=== PATIENT | female | born 1975 | race Caucasian/White ===

== ENCOUNTER 2016-06-02 17:51 | Emergency (ER) | payer BC ==
[2016-06-02 18:50] VITALS: BP 122/52
--- NOTE | 2016-06-02 19:17 | UC ---
Respiratory Complaint HPI - HPI Summary HPI Summary: ill in Feb with URI and ear infection, took erythromycin. Ill again in Mar with "sinusitis", Rx another antibiotic. Now for past week sinus congestion, right ear pressure/pain, PND, dry cough. 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 No recent fever. No discolored drainage. No new environmental exposures. Was using Claritin-D which seemed to help, b ut when she stopped she had rebound congestion. Irritated and angry that she is still ill after so long. Able to eat and drink - History of Current Complaint Chief Complaint: UCGeneralIllness Stated Complaint: EARS & SINUSES Time Seen by Provider: 06/02/16 18:57 Hx Obtained From: Patient Onset/Duration: Lasting Weeks - 1, for recent episode of congestion Timing: Constant Severity Initially: Mild Severity Currently: Moderate Character: Cough: Nonproductive Aggravating Factors: Nothing Alleviating Factors: Nothing Associated Signs And Symptoms: Positive: Chills, URI, Nasal Congestion, Hoarseness, Sinus Discomfort. Negative: Fever, Pleuritic Chest Pain, Wheezing, Hemoptysis, Dizziness - Risk Factors Pulmonary Embolism Risk Factors: Negative Cardiac Risk Factors: Negative Pseudomonas Risk Factors: Negative Tuberculosis Risk Factors: Negative - Allergies/Home Medications Allergies/Adverse Reactions: Allergies Allergy/AdvReac Type Severity Reaction Status Date / Time Sulfa Antibiotics Allergy Mild Rash Verified 06/02/16 18:50 PMH/Surg Hx/FS Hx/Imm Hx Previously Healthy: Yes Endocrine History Of: Denies: Diabetes, Thyroid Disease Cardiovascular History Of: Denies: Cardiac Disorders, Hypertension Respiratory History Of: Denies: Asthma - Surgical History Surgical History: Yes Surgery Procedure, Year, and Place: hysterectomy. 2 c -sections. knee - Family History Known Family History: Positive: Other - psotive FMH of URI - Social History Occupation: Employed Full-time Lives: With Family Alcohol Use: Rare Substance Use Type: None Smoking Status (MU): Never Smoked Tobacco - Immunization History Most Recent Influenza Vaccination: no Review of Systems Constitutional: Chills, Fatigue Skin: Negative Eyes: Negative ENT: Ear Ache, Nasal Discharge Respiratory: Cough Cardiovascular: Negative Gastrointestinal: Negative Genitourinary: Negative Motor: Negative Neurovascular: Negative Musculoskeletal: Negative Neurological: Headache - off and on Psychological: Negative All Other Systems Reviewed And Are Negative: Yes Physical Exam Triage Information Reviewed: Yes Appearance: Well-Appearing, No Pain Distress, Well-Nourished Vital Signs: Initial Vital Signs Temp 98.3 F 06/02/16 18:44 Pulse 92 06/02/16 18:44 Resp 18 06/02/16 18:44 BP 122/52 06/02/16 18:44 Pulse Ox 100 06/02/16 18:44 Vital Signs Reviewed: Yes Eye Exam: Normal Eyes: Positive: Conjunctiva Clear ENT: Positive: Hearing grossly normal, Pharynx normal, Nasal congestion, Nasal drainage, TM dull - right side; slightly dusky pink as compared to left, Muffled /hoarse voice - hoarse. Negative: Tonsillar swelling, Tonsillar exudate, Trismus Neck exam: Normal Neck: Positive: Supple Respiratory Exam: Normal Cardiovascular Exam: Normal Musculoskeletal Exam: Normal Neurological Exam: Normal Psychological Exam: Normal Skin Exam: Normal UC Diagnostic Evaluation - Laboratory O2 Sat by Pulse Oximetry: 100 Respiratory Course/Dx - Differential Dx/Diagnosis Differential Diagnosis/HQI/PQRI: Bronchitis, Lower Resp Infection, Sinusitis Provider Diagnoses: URI Discharge - Discharge Plan Condition: Stable Disposition: HOME Prescriptions: Cephalexin CAP* [Keflex CAP*] 500 mg PO TID #30 cap Hydrocodone Polistirex-Chlorph [Tussionex Pennkinetic Ext 10-8 mg/5Ml] 1 teasp PO BID PRN #100 ml MDD 10ml PRN Reason: Cough Oxymetazoline HCl [Afrin Nasal [place]] 0.05 % NA BID PRN #1 spr PRN Reason: congestion/ear pain Patient Education Materials: Upper Respiratory Infection (ED) Referrals: Yari Johnson [Primary Care Provider] -
== END 2016-06-02 19:21 | disposition home or self-care (01) ==
LOC: UCCORT 17:51
DX: J06.9 Acute upper respiratory infection, unspecified (principal); Z88.2 Allergy status to sulfonamides
CPT/HCPCS: 99212; G0463

== ENCOUNTER 2018-07-02 11:19 | Emergency (ER) | payer BC ==
--- OUTSIDE RECORDS SUMMARY | 2018-07-02 12:55 | XMS REPORT | Continuity of Care Document ---
:1975 External Reference #:[id number] Author Name Demetrius Flores M.D. Address [address] [place] [address] [place] [address] Care Team Providers Name Role Phone Demetrius Flores M.D. Care Team Information Clerk [employer] Unavailable Payers Type Date Identification Numbers Payment Provider Subscriber Policy Number: [id number] Anitra Mott JR PayID: [id number] [address] [address] [place] [address] Advance Directives Description No Information Available Problems Description No Information Family History Date Family Member(s) Problem(s) Comments Father Esophagus Cancer Social History Type Date Description Comments Sex Unknown Lives With Diet Patient follows no dietary restrictions Occupation Day Care Provider Hand Dominance Left-handed Tobacco Use Start: Unknown End: Unknown Quit ETOH Use Currently consumes alcohol socially Allergies, Adverse Reactions, Alerts Date Description Reaction Status Severity Comments 06/16/2018 Sulfa Drugs Active Medications Medication Date Status Form Strength Qnty SIG Indications Ordering Provider Pantoprazole Active Tablets DR 40mg Unknown Sodium 000 Naproxen Sodium Active Tablets 220mg 1 tab by Unknown 000 mouth twice a day D3 Dots 0 Active Tablets 2000Unit Unknown 000 Dispers Acetaminophen Active Tablets 500mg take 1-2 Unknown 000 tablets by mouth every 4 to 6 hours Hydrocodone-Acet 0 Active Tablets 5-325mg Unknown aminophen 000 Immunizations Description No Information Available Vital Signs Date Vital Result Comment 06/16/2018 1:43pm BP Systolic Sitting Right Arm 108 mmHg BP Diastolic Sitting Right Arm 74 mmHg Heart Rate 76 /min Height 65 inches 5'5" Weight 230.00 lb BMI (Body Mass Index) 38.3 kg/m2 BSA (Body Surface Area) 2.10 m2 [place] body weight in kilograms 57 kg O2 % BldC Oximetry 98 % Results Test Date Facility Test Result H/L Range Note Xray 06/06/2018 [facility] - Radiology Ultrasound, Gallstones present [address] [place] [address] [phone] Procedures Description No Information Available Encounters Description No Information Available Plan of Treatment 06/16/2018 - Demetrius Flores M.[id number] Calculus of gallbladder with acute and chronic cholecystitis without obstructionComments:Will arrange Cholecystectomy. Stone seen on ultrasound. Mild right upper quadrant tenderness. Fatty food intolerance pattern clearly present. Discussed open versus laparoscopic approach. The risks,benefits and alternatives were also addresses. Questions were answered.
[2018-07-02 12:58] VITALS: BP 125/92
--- NOTE | 2018-07-02 13:19 | UC ---
Eye Complaint HPI - HPI Summary HPI Summary: 4 days ago R eye drainage and swelling w/ a blister she noticed last night. did use antibx eye drops which have not helped. denish hx of eye trauma. - History of Current Complaint Chief Complaint: UCEye Stated Complaint: BILATERAL EYE COMPLAINT Time Seen by Provider: 07/02/18 13:04 Hx Obtained From: Patient Pain Intensity: 3 Pain Scale Used: 0-10 Numeric Location of Injury: Eye Lid (lower) Character: Foreign Body Sensation Aggravating Factor(s): Nothing Alleviating Factor(s): Nothing - Allergies/Home Medications Allergies/Adverse Reactions: Allergies Allergy/AdvReac Type Severity Reaction Status Date / Time Sulfa (Sulfonamide Allergy Rash Verified 07/02/18 12:54 Antibiotics) Home Medications: Home Medications Pantoprazole TAB * [Protonix TAB*] 1 tab BID 07/02/18 [History Confirmed ] PMH/Surg Hx/FS Hx/Imm Hx Previously Healthy: Yes - Surgical History Surgical History: Yes Surgery Procedure, Year, and Place: hysterectomy. 2 c-sections. knee. foot. gallbladder - Family History Known Family History: Positive: Hypertension, Other - psotive FMH of URI - Social History Alcohol Use: Occasionally Substance Use Type: None Smoking Status (MU): Never Smoked Tobacco - Immunization History Most Recent Influenza Vaccination: no Review of Systems All Other Systems Reviewed And Are Negative: Yes Constitutional: Negative: Fever Skin: Negative: Rash Eyes: Positive: Drainage, Eye Redness, Other - R lower lid inflammation. Negative: Blurred Vision, Diplopia, Photophobia ENT: Negative: Dental Pain, Sore Throat Neurological: Negative: Headache Physical Exam Triage Information Reviewed: Yes Appearance: Well-Appearing Vital Signs: Initial Vital Signs Temp 98.5 F 07/02/18 12:55 Pulse 88 07/02/18 12:55 Resp 16 07/02/18 12:55 BP 125/92 07/02/18 12:55 Pulse Ox 100 07/02/18 12:55 Vital Signs Reviewed: Yes Eyes: Positive: Conjunctiva Inflamed, Other: - PERRLA BILAT, L EYE UNREMARKABLE , R LOWER INNER LID HAS INFLAMMATION NONTENDER AND NO SIGNS OF CHALAZION OR MASS.. Negative: Discharge Eye Complaint Course/Dx - Course Course Of Treatment: R lower inner lid irritation, w/ red eye and clearish discharge. Afebrile and no pain w/ eye movement, reactive pupils. Used antibx drops which did not help. Meibomian gladn dysfunction/blepharitis R eye so perhaps ointment may be better mode of medication but have referred her to eye doctor for frederick evauation. NO hx of trauma. - Differential Dx/Diagnosis Differential Diagnosis/HQI/PQRI: Foreign Body, Other Provider Diagnosis: Meibomian blepharitis Discharge - Sign-Out/Discharge Documenting (check all that apply): Patient Departure All imaging exams completed and their final reports reviewed: No Studies - Discharge Plan Condition: Good Disposition: HOME Prescriptions: Erythromycin OPTH OINT* [Erythromycin 0.5% OPTH OINT*] 1 applic RIGHT EYE TID 7 Days #1 ophth.oint Patient Education Materials: Blepharitis (ED) Referrals: Jael Hopkins MD [Medical Doctor] - Additional Instructions: Please follow up with the eye doctor. If you develop fever, headache or pain w / eye movement please return . - Billing Disposition and Condition Condition: GOOD Disposition: Home - Attestation Statements Provider Attestation: I was available for consult. This patient was seen by the LOUISE. The patient was not presented to, seen by, or examined by me. EK
== END 2018-07-02 13:33 | disposition home or self-care (01) ==
LOC: UCCORT 11:19
DX: H01.002 Unspecified blepharitis right lower eyelid (principal); Z88.2 Allergy status to sulfonamides
CPT/HCPCS: 99212; G0463